=== PATIENT | female | born 1985 | race Caucasian/White ===

== ENCOUNTER 2022-06-13 08:14 | Emergency (ER) | payer SELFPAY ==
[~2022-06-13] VITALS: Ht 152.4 cm; Wt 68.5 kg
[2022-06-13 08:17] VITALS: BP 128/51
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
[2022-06-13 08:30] VITALS: BP 122/54
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
== END 2022-06-13 09:30 ==
LOC: MED 08:14
DX: Z02.89 Encounter for other administrative examinations (principal); V89.2XXA Person injured in unspecified motor-vehicle accident, traffic, initial encounter; Y93.89 Activity, other specified; Y92.89 Other specified places as the place of occurrence of the external cause; Y99.8 Other external cause status
CPT/HCPCS: 99283